=== PATIENT | male | born 1990 | race Caucasian/White ===

== ENCOUNTER 2020-02-07 00:21 | Emergency (ER) | payer OTHER ==
[~2020-02-07] VITALS: Ht 180.3 cm; Wt 88.6 kg
[2020-02-07] MEDS ORDERED: LORazepam 2 MG/ML VIAL IM ONE (01:45)
[2020-02-07] MEDS ORDERED: diphenhydrAMINE 50MG/ML VIAL (J1200) IM ONE (01:45)
[2020-02-07] MEDS ORDERED: HALOPERIDOL 5MG/ML VIAL (J1630 PER 1) IM ONE (01:45)
[2020-02-07 02:41] LABS: HEMATOCRIT 49.5 % (42.0-52.0); HEMOGLOBIN 16.2 g/dl (13.5-17.5); MEAN CORPUSCULAR HEMOGLOBIN 31.4 pg (27.0-33.0); MEAN CORPUSCULAR HGB CONC 32.7 g/dl (32.0-36.5); MEAN CORPUSCULAR VOLUME 95.9 fl (80.0-96.0); PLATELET COUNT, AUTOMATED 236 10^3/uL (150-450); RED BLOOD COUNT 5.16 10^6/uL (4.30-6.10); WHITE BLOOD COUNT 6.5 10^3/uL (4.0-10.0)
[2020-02-07 03:08] LABS: AMPHETAMINES LEVEL URINE NEGATIVE (NEGATIVE); BARBITURATES URINE NEGATIVE (NEGATIVE); BENZODIAZEPINES URINE NEGATIVE (NEGATIVE); CANNABINOIDS URINE NEGATIVE (NEGATIVE); COCAINE METABOLITE URINE NEGATIVE (NEGATIVE); METHADONE URINE NEGATIVE (NEGATIVE); OPIATES URINE NEGATIVE (NEGATIVE); PHENCYCLIDINE URINE NEGATIVE (NEGATIVE)
[2020-02-07 03:36] LABS: ACETAMINOPHEN LEVEL < 2.0 UG/ML (10.0-30.0); ALBUMIN 4.1 GM/DL (3.2-5.2); ALT/SGPT 72 U/L (12-78); BILIRUBIN,DIRECT 0.1 MG/DL (0.0-0.2); BILIRUBIN,TOTAL 0.3 MG/DL (0.2-1.0); BLOOD UREA NITROGEN 10 MG/DL (7-18); CALCIUM LEVEL 9.3 MG/DL (8.5-10.1); CARBON DIOXIDE LEVEL 28 MEQ/L (21-32); CHLORIDE LEVEL 113 MEQ/L (98-107); CREATININE FOR GFR 0.87 MG/DL (0.70-1.30); ETHYL ALCOHOL (ETHANOL) 0.342 % (0.000-0.010); GLOMERULAR FILTRATION RATE > 60.0 (>60); GLUCOSE, FASTING 104 MG/DL (70-100); POTASSIUM SERUM 3.8 MEQ/L (3.5-5.1); SALICYLATE LEVEL 2.5 MG/DL (5.0-30.0); SODIUM LEVEL 149 MEQ/L (136-145); TOTAL PROTEIN 8.2 GM/DL (6.4-8.2)
[2020-02-07] MEDS ORDERED: THIAMINE 100 MG TAB PO SCH (05:29)
[2020-02-07] MEDS ORDERED: LORazepam 2 MG TAB PO PRN (05:30)
[2020-02-07] MEDS ORDERED: MULTIVITAMINS/MINERALS THERAP 1 TAB PO SCH (09:00)
[2020-02-07] MEDS ORDERED: FOLIC ACID 1 MG TAB PO SCH (09:00)
[2020-02-07 15:22] VITALS: BP 121/78
== END 2020-02-07 15:45 | disposition home or self-care (01) ==
LOC: M ED 00:21
DX: F10.129 Alcohol abuse with intoxication, unspecified (principal)
CPT/HCPCS: 80048; 80076; 80307; 84443; 85027; 96372; 99284; G0480; J1200; J1630; J2060

== ENCOUNTER 2020-06-07 16:03 | Inpatient (IN) | payer OTHER ==
[~2020-06-07] VITALS: Ht 180.3 cm; Wt 85.8 kg
[2020-06-07] MEDS ORDERED: WELLTAB40 PO (16:14)
[2020-06-07] MEDS ORDERED: methylPREDNISolone 125MG 2ML VIAL IV ONE (18:00)
[2020-06-07] MEDS ORDERED: ISOVUE-370 76% 100ML VIAL As Ordered ONE (18:07)
[2020-06-07 18:11] LABS: HEMATOCRIT 43.5 % (42.0-52.0); HEMOGLOBIN 13.8 g/dl (13.5-17.5); MEAN CORPUSCULAR HGB CONC 31.7 g/dl (32.0-36.5); MEAN CORPUSCULAR VOLUME 94.6 fl (80.0-96.0); PLATELET COUNT, AUTOMATED 242 10^3/uL (150-450); WHITE BLOOD COUNT 9.8 10^3/uL (4.0-10.0)
--- NOTE | 2020-06-07 18:32 | REPVR ---
PROCEDURE INFORMATION: Exam: CT Neck With Contrast Exam date and time: 06/07/2020 5:51 PM Age: 29 years old Clinical indication: Mass, lump, or swelling in neck; Additional info: R sided tonsill swelling R/O abscess TECHNIQUE: Imaging protocol: Computed tomography images of the neck with intravenous contrast. Radiation optimization: All CT scans at this facility use at least one of these dose optimization techniques: automated exposure control; mA and/or kV adjustment per patient size (includes targeted exams where dose is matched to clinical indication); or iterative reconstruction. Contrast material: ISOVUE 370; Contrast volume: 75 ml; Contrast route: INTRAVENOUS (IV); COMPARISON: No relevant prior studies available. FINDINGS: Nasopharynx: Hypertrophy adenoids consistent with adenopathy. Oropharynx: Bilaterally enlarged tonsillar pillars consistent with adenopathy. Hypoattenuating low-density focus in the right tonsillar pillar measures 1.8 x 1.5 x 2.7 cm. Smaller fluid density locules demonstrated laterally. Findings consistent with tonsillar abscesses. Hypopharynx: Unremarkable. Larynx: Unremarkable. Normal epiglottis. Retropharyngeal space: Unremarkable. Submandibular/Parotid glands: Normal. Glands are normal in size. Thyroid: Normal. No enlarged or calcified nodules. Lymph nodes: Enlarged soft palate consistent with palatine adenopathy. Bilateral level I through level III adenopathy measuring up to 1.4 cm in the right jugulodigastric region. Smaller submental lymph nodes demonstrated as well. Trachea: Visualized trachea is unremarkable. Lungs: Unremarkable as visualized. Bones/joints: Unremarkable. No acute fracture. Soft tissues: Unremarkable. No significant soft tissue swelling. IMPRESSION: 1. Hypertrophy adenoids and soft palate consistent with adenopathy. 2. Bilaterally enlarged tonsillar pillars consistent with adenopathy. Hypoattenuating low-density focus in the right tonsillar pillar measures 1.8 x 1.5 x 2.7 cm. Smaller fluid density locules demonstrated laterally. Findings consistent with tonsillar abscesses. 3. Bilateral level I through level III adenopathy measuring up to 1.4 cm in the right jugulodigastric region. Smaller submental lymph nodes demonstrated as well. Electronically signed by: Ronny Grove On 06/07/2020 18:32:43 PM
[2020-06-07 18:44] LABS: ATYPICAL LYMPH 6 % (0-5); LYMPHOCYTES 32 % (16-44); METAMYELOCYTES 1 % (0-0); MONOCYTES 8 % (0-5); NEUTROPHILS 42 % (28-66)
[2020-06-07 18:45] LABS: ANISOCYTOSIS 1+; PLATELET ESTIMATE NORMAL (NORMAL)
[2020-06-07 18:46] LABS: HYPOCHROMASIA 1+
[2020-06-07 18:47] LABS: ERYTHROCYTE SEDIMENTATION RATE 8 mm/hr (0-15)
[2020-06-07] MEDS ORDERED: GLUCAGON INJ 1MG VIAL SC PRN (19:30)
[2020-06-07] MEDS ORDERED: DEXTROSE 50% 50 ML SYRINGE IV PRN (19:30)
[2020-06-07] MEDS ORDERED: GLUCOSE 4GM CHEW TABLET PO PRN (19:30)
[2020-06-07] MEDS ORDERED: D5W/0.45% SODIUM CHLORIDE 1,000 ML IV SCH (19:30)
[2020-06-07] MEDS ORDERED: CLINDAMYCIN 600 MG in IV 1 EA IV ONE (19:45)
--- NOTE | 2020-06-07 20:22 | HPEPDOC ---
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 He was seen at [place] [facility] initially and told that since he has had symptoms for 5 days, no need to treat and may resolve spontaneously. He continued to have odynophagia, and went to Urgent Care on Thursday where he was t ested for COVID-19NEGATIVE, and (+) for mononucleosis. Due to persistent sharp constant pain, increasing cervical LAD, difficulty eating solid food, and unable to sleep taking nyquil as needed and a 5lb weight loss in the past 2 wks, he decided to come to [facility] ER despite quarantine orders at [place]. He denied any change in his voice, respiratory distress, and is able to lay down flat on the bed without difficulty breathing. In the ER, he was afebrile 99.2, no stridor or tracheal deviation on examination, CRP 3.8, but normal white count and ESR, but CT Neck : tonsillar abscesses. ER gave iv solumedrol, and per ENT Dr. Sanchez, pt was kept NPO for surgery tonight. PAST MEDICAL HISTORY: mononucleosis, depression, ETOH intoxication, anxiety, suicidal ideation seen in ER January 2020 HOME MEDICATIONS: SEE BELOW ALLERGIES: NKDA PAST SURGICAL HISTORY: cholecystectomy SOCIAL HISTORY: Marital status: . lives with at [place] Employment: retired marine Tobacco use:quit January 2020 1ppd previously ETOH:alcohol intoxication january 2020 seen in ER. Illicit drug use: denies FAMILY HISTORY: Father: alive and well age 55, no medical problems Mother: alive and well age 55, no medical problems REVIEW OF SYSTEMS:10 POINT ROS NEGATIVE ASIDE FROM (+) FINDINGS ON HPI HOME MEDICATIONS: Please see below. PHYSICAL EXAMINATION: VITAL SIGNS: SEE BELOW GENERAL APPEARANCE: AAO x 3. no respiratory distress, no conversational dyspnea, no cyanosis, no pallor no drooling no use of accessory respiratory muscles HEENT: PERRL EOMI anicteric no jaundice trachea midline no stridor (+)b/l cervical LAD no thyromegal, + pharangeal erythema , enlarged tonsills without purulence CARDIOVASCULAR: RRR S1S2 no murmurs, rubs, gallops, nondisplaced PMI LUNGS: AEBE CTAB no adventitious breath sounds no w/r/r ABDOMEN: soft nt nd + bs x 4 quadrants no rebound, guarding, or HSM EXTREMITIES: (-)cyanosis, clubbing, or pitting edema LABORATORY DATA: See below. IMAGING: Exam: CT Neck With Contrast Exam date and time: 06/07/2020 5:51 PM Age: 29 years old Clinical indication: Mass, lump, or swelling in neck; Additional info: R sided tonsillar swelling R/O abscess TECHNIQUE: Imaging protocol: Computed tomography images of the neck with intravenous contrast. Radiation optimization: All CT scans at this facility use at least one of these dose optimization techniques: automated exposure control; mA and/or kV adjustment per patient size (includes targeted exams where dose is matched to clinical indication); or iterative reconstruction. Contrast material: ISOVUE 370; Contrast volume: 75 ml; Contrast route: INTRAVENOUS (IV); COMPARISON: No relevant prior studies available. FINDINGS: Nasopharynx: Hypertrophy adenoids consistent with adenopathy. Oropharynx: Bilaterally enlarged tonsillar pillars consistent with adenopathy. Hypoattenuating low-density focus in the right tonsillar pillar measures 1.8 x 1.5 x 2.7 cm. Smaller fluid density locules demonstrated laterally. Findings consistent with tonsillar abscesses. Hypopharynx: Unremarkable. Larynx: Unremarkable. Normal epiglottis. Retropharyngeal space: Unremarkable. Submandibular/Parotid glands: Normal. Glands are normal in size. Thyroid: Normal. No enlarged or calcified nodules. Lymph nodes: Enlarged soft palate consistent with palatine adenopathy. Bilateral level I through level III adenopathy measuring up to 1.4 cm in the right jugulodigastric region. Smaller submental lymph nodes demonstrated as well. Trachea: Visualized trachea is unremarkable. Lungs: Unremarkable as visualized. Bones/joints: Unremarkable. No acute fracture. Soft tissues: Unremarkable. No significant soft tissue swelling. IMPRESSION: 1. Hypertrophy adenoids and soft palate consistent with adenopathy. 2. Bilaterally enlarged tonsillar pillars consistent with adenopathy. Hypoattenuating low-density focus in the right tonsillar pillar measures 1.8 x 1.5 x 2.7 cm. Smaller fluid density locules demonstrated laterally. Findings consistent with tonsillar abscesses. 3. Bilateral level I through level III adenopathy measuring up to 1.4 cm in the right jugulodigastric region. Smaller submental lymph nodes demonstrated as well. Electronically signed by: Ronny Grove On 06/07/2020 18:32:43 PM MICROBIOLOGY: Please see below. ASSESSMENT/PLAN: Right Tonsillar Abscesses -npo. ENT Dr. Mynor Sanchez has been consulted. D51/2 NS at 100ml/hr while npo. Hypoglycemic protocol. Decadron 10 mg iv q6hrs, Clindamycin 600mg IV q6hrs. Anxiety/Depression/History of Suicidal Ideation -last evaluation was at [facility] ER 01/2020. -denies active suicidal or homicidal ideation History of ETOH intoxication -denies ETOH abuse. Diet: NPO DVT Prophylaxis: no anticoagulant preoperatively. compression stockings. code Status: Full code. Vital Signs Vital Signs Date Time Temp Pulse Resp B/P (MAP) Pulse Ox O2 Delivery O2 Flow Rate FiO2 06/07/20 17:47 06/07/20 16:04 99.2 82 20 98 Room Air Laboratory Data Labs 24H Laboratory Tests 2 06/07/20 18:00: Neutrophils (%) (Auto) , Nucleated Red Blood Cells % (auto) 0.0, Neutrophils 42, Band Neutrophils 11, Lymphocytes (Manual) 32, Monocytes (Manual) 8H, M etamyelocytes 1H, Atypical Lymphocytes 6H, Hypochromasia 1+, Anisocytosis 1+, Platelet Estimate NORMAL, Erythrocyte Sedimentation Rate 8, C-Reactive Protein, Quantitative 3.80H 06/07/20 18:04: POC Glucose (Misc Panel) 89, POC Sodium (Misc Panel) 139, POC Potassium (Misc Panel) 4.0, POC Chloride (Misc Panel) 100, POC Total CO2 (Misc Panel) 29.0H, POC Blood Urea Nitrogen (Misc Panel 6L, POC Ionized Calcium (Misc Panel) 4.7, POC Creatinine (Misc Panel) 1.0, POC Hematocrit (Misc Panel) 43.0 CBC/BMP Laboratory Tests 06/07/20 18:00 Home Medications Scheduled Bupropion HCl (Wellbutrin Xl) 300 Mg Tab.er.24h, 300 MG PO DAILY Allergies Coded Allergies: No Known Allergies (Unverified , 02/07/20) A-FIB/CHADSVASC A-FIB History Current/History of A-Fib/PAF?: No Current PO Anticoag Therapy: No Age/Risk Factor Scoring CHADSVASC: CHADSVASC Response (Comments) Value Age Risk Factor Age < 65 years old 0 Gender Risk Factor Male 0 Hx of CHF No 0 Hx of HTN No 0 Hx of Stroke/TIA/or VTE No 0 Hx of Diabetes No 0 Hx of Vascular Disease No 0 Total 0 Treatment Treatment ordered: NONE KAYE ALVAREZ MD Jun 07, 2020 19:30
[2020-06-07] MEDS ORDERED: ACETAMINOPHEN *IV* 1,000 MG in IV 1 EA IV ONE (20:30)
[2020-06-07] MEDS ORDERED: MORPHINE 10 MG/ML 1ML VIAL (J2270) IV ONE (20:30)
[2020-06-07] MEDS: MORPHINE 4 MG/ML 1ML VIAL/SYRINGE (J2270) IV PRN ×2 (20:34→23:37)
[2020-06-07] MEDS ORDERED: LIDOCAINE W/EPINEPHRINE 1% 20ML VIAL As Ordered ONE (21:33)
[2020-06-07] MEDS ORDERED: CLINDAMYCIN INJ 900MG/6ML VIAL As Ordered ONE (21:33)
[2020-06-07] MEDS: dexameTHASONE 20MG/5ML VIAL (J1100 PER 1MG) IV SCH (21:50)
[2020-06-07] MEDS ORDERED: ROCURONIUM BROMIDE 50 MG/5 ML VIAL As Ordered ONE (21:54)
[2020-06-07] MEDS ORDERED: MIDAZOLAM INJ 2MG/2ML VIAL (J2250 PER 1MG) As Ordered ONE (21:54)
[2020-06-07] MEDS ORDERED: dexameTHASONE 4 MG/ML 1ML VIAL (J1100 PER 1MG) As Ordered ONE (21:54)
[2020-06-07] MEDS ORDERED: KETOROLAC 60MG 2ML VIAL As Ordered ONE (21:54)
[2020-06-07] MEDS ORDERED: propofoL 200 MG/20 ML VIAL As Ordered ONE (21:54)
[2020-06-07] MEDS ORDERED: fentaNYL 250 MCG/5 ML INJECTION (J3010) As Ordered ONE (21:54)
[2020-06-07] MEDS ORDERED: ONDANSETRON 4MG/2ML VIAL As Ordered ONE (21:54)
[2020-06-07] MEDS ORDERED: LIDOCAINE 2% 100MG/5ML SDV (FOR ANES.) As Ordered ONE (21:54)
[2020-06-07] MEDS ORDERED: SUGAMMADEX SODIUM 500 MG/5 ML VIAL (BRIDION) As Ordered ONE (21:54)
[2020-06-07] MEDS ORDERED: METOCLOPRAMIDE INJ 10MG/2ML VIAL (J2765 PER 1) IV PRN (22:15)
[2020-06-07] MEDS ORDERED: LR 1,000 ML IV SCH (22:15)
[2020-06-07] MEDS ORDERED: MEPERIDINE INJ 25 MG/ML VIAL (J2175) IV PRN (22:15)
[2020-06-07] MEDS ORDERED: ONDANSETRON 4MG/2ML VIAL IV PRN (22:15)
[2020-06-07] MEDS ORDERED: fentaNYL 100 MCG/2 ML INJECTION (J3010) As Ordered ONE (22:20)
[2020-06-07] MEDS: fentaNYL 100 MCG/2 ML INJECTION (J3010) IV PRN ×4 (22:25→22:47)
[2020-06-07 23:00] VITALS: BP 135/75
[2020-06-07 23:30] VITALS: BP 139/71
[2020-06-07] MEDS: LR 1,000 ML IV SCH (23:38)
[2020-06-08] VITALS (9 sets, daily range): BP systolic 108–144; BP diastolic 54–84
[2020-06-08] MEDS: MORPHINE 4 MG/ML 1ML VIAL/SYRINGE (J2270) IV PRN ×3 (02:33→08:03)
[2020-06-08] MEDS: CLINDAMYCIN 600 MG in IV 1 EA IV SCH ×2 (02:34→07:55)
[2020-06-08] MEDS: dexameTHASONE 20MG/5ML VIAL (J1100 PER 1MG) IV SCH ×2 (05:15→11:46)
[2020-06-08 06:01] LABS: HEMATOCRIT 40.6 % (42.0-52.0); HEMOGLOBIN 12.6 g/dl (13.5-17.5); MEAN CORPUSCULAR HEMOGLOBIN 29.1 pg (27.0-33.0); MEAN CORPUSCULAR VOLUME 93.8 fl (80.0-96.0); PLATELET COUNT, AUTOMATED 265 10^3/uL (150-450); RED BLOOD COUNT 4.33 10^6/uL (4.30-6.10); WHITE BLOOD COUNT 9.6 10^3/uL (4.0-10.0)
[2020-06-08 06:05] LABS: BLOOD UREA NITROGEN 9 MG/DL (7-18); C REACTIVE PROTEIN QUANTITATIV 4.77 MG/DL (0.00-0.30); CALCIUM LEVEL 8.8 MG/DL (8.5-10.1); CARBON DIOXIDE LEVEL 28 MEQ/L (21-32); CHLORIDE LEVEL 104 MEQ/L (98-107); CREATININE FOR GFR 0.86 MG/DL (0.70-1.30); GLOMERULAR FILTRATION RATE > 60.0 (>60); GLUCOSE, FASTING 160 MG/DL (70-100); POTASSIUM SERUM 4.1 MEQ/L (3.5-5.1); SODIUM LEVEL 139 MEQ/L (136-145)
[2020-06-08 06:25] LABS: ERYTHROCYTE SEDIMENTATION RATE 11 mm/hr (0-15)
[2020-06-08 06:45] LABS: ATYPICAL LYMPH 14 % (0-5); LYMPHOCYTES 15 % (16-44); MONOCYTES 9 % (0-5); NEUTROPHILS 62 % (28-66); PLATELET ESTIMATE NORMAL (NORMAL)
[2020-06-08] MEDS: LR 1,000 ML IV SCH (07:55)
[2020-06-08] MEDS ORDERED: CLIN150C14 PO (10:27)
[2020-06-08] MEDS ORDERED: CLEO300C2 PO (10:31)
--- NOTE | 2020-06-08 10:34 | DS.PDOC ---
Discharge Summary General Date of Admission Jun 07, 2020 at 19:30 Date of Discharge 06/08/20 Discharge Summary PROCEDURES PERFORMED DURING STAY: [None]. ADMITTING DIAGNOSES: R Tonsillar Abscess Anxiety/Depression/Hx of SI Hx of etoh use disorder, sober 5 months, in treatment program DISCHARGE DIAGNOSES: R Tonsillar Abscess Anxiety/Depression/Hx of SI Hx of etoh use disorder, sober 5 months, in treatment program COMPLICATIONS/CHIEF COMPLAINT: Tonsillar Abscess. 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 He was seen at [place] [facility] initially and told that since he has had symptoms for 5 days, no need to treat and may resolve spontaneously. He continued to have odynophagia, and went to Urgent Care on Thursday where he was tested for COVID-19NEGATIVE, and (+) for mononucleosis. Due to persistent sharp constant pain, increasing cervical LAD, difficulty eating solid food, and unable to sleep taking nyquil as needed and a 5lb weight loss in the past 2 wks, he decided to come to [facility] ER despite quarantine orders at [place]. He denied any change in his voice, respiratory distress, and is able to lay down flat on the bed without difficulty breathing. In the ER, he was afebrile 99.2, no stridor or tracheal deviation on examination, CRP 3.8, but normal white count and ESR, but CT Neck : tonsillar abscesses. ER gave iv solumedrol, and per ENT Dr. Sanchez, pt was kept NPO for surgery tonight. HOSPITAL COURSE: Mr. Herrera is a pleasant 29-year-old male was admitted for surgical management of right tonsillar abscess. He was given Decadron 10 mg IV every 6 hours as well as clindamycin 600 mg IV every 6 hours. He was taken to the OR by ENT surgeon Dr. Mynor Sanchez. He was evaluated in the morning following surgery. He was able to tolerate a soft diet, had complained of mild to moderat e pain, and had noted breathing difficulties. Discussed the case with Dr. Sanchez, recommended patient be discharged with clindamycin orally for 10 days, without need for additional steroids. Patient to follow up with him in one week in the ENT clinic. Patient did not have a white count, fever, or respiratory difficulties in the morning of discharge, O2 saturation 96% room air. He was advised to return to the ER if you developed difficulties breathing, fevers, chills, significant pharyngeal pain. Further, patient was advised to avoid contact sports for at least 2 weeks or until seeing his primary care provider, given history of recent mononucleosis DISCHARGE MEDICATIONS: Please see below. ALLERGIES: Please see below. PHYSICAL EXAMINATION ON DISCHARGE: VITAL SIGNS: please see below General: NAD, comfortable HEENT: PERRLA, EOMI, sclerae clear Neck: supple, no JVD Respiratory: lungs CTAB, no wheeze, no rales, no crackles CVS: RRR, normal S1, S2, no murmurs Abdo: soft, no masses, questionable mild hepatomegaly, BS+, no rebound tenderness Extremities: no edema, pulses 2+ MSK: no joint deformities, normal ROM Neuro: no focal neuro deficits, moving all 4 extremities, CN2-[address] ength 5/5 in all 4 extremities. No nystagmus. Psych: calm, cooperative, AAO x 3 LABORATORY DATA: Please see below. IMAGING: CT neck w contrast (06/08/20) 1. Hypertrophy adenoids and soft palate consistent with adenopathy. 2. Bilaterally enlarged tonsillar pillars consistent with adenopathy. Hypoattenuating low-density focus in the right tonsillar pillar measures 1.8 x 1.5 x 2.7 cm. Smaller fluid density locules demonstrated laterally. Findings consistent with tonsillar abscesses. 3. Bilateral level I through level III adenopathy measuring up to 1.4 cm in the right jugulodigastric region. Smaller submental lymph nodes demonstrated as well. PROGNOSIS: Good ACTIVITY: [As tolerated]. DIET: Soft diet DISCHARGE PLAN: Discharge home ENT follow-up in 1 week. PCP in 3-[address] Kenn nue clindamycin 600 mg by mouth twice a day for 10 days. Trial with by mouth Canjilon and Advil. DISPOSITION: Home DISCHARGE INSTRUCTIONS: 1. Please follow-up with your primary care doctor within 3-5 days 2. Please follow-up with ENT within 1 week 3. Please taking medications as prescribed. 4. If he developed bleeding, chest pain, shortness of breath, seizures, nausea, fevers, or otherwise worsening of your symptoms, please call 911 or return to the nearest emergency room ITEMS TO FOLLOWUP ON ON OUTPATIENT: Completion of clindamycin course for 10 days. DISCHARGE CONDITION: [Stable]. TIME SPENT ON DISCHARGE: 35 minutes Vital Signs/I&Os Vital Signs Date Time Temp Pulse Resp B/P (MAP) Pulse Ox O2 Delivery O2 Flow Rate FiO2 06/08/20 08:13 16 Room Air 06/08/20 08:00 98.8 70 144/84 (104) 96 I&O- Last 24 Hours up to 6 AM 06/08/20 06:00 Intake Total 515 ml Output Total 525 ml Balance -10 ml Laboratory Data Labs 24H Laboratory Tests 2 06/07/20 18:00: Neutrophils (%) (Auto) , Nucleated Red Blood Cells % (auto) 0.0, Neutrophils 42, Band Neutrophils 11, Lymphocytes (Manual) 32, Monocytes (Manual) 8H, Metamyelocytes 1H, Atypical Lymphocytes 6H, Hypochromasia 1+, Anisocytosis 1+, Platelet Estimate NORMAL, Erythrocyte Sedimentation Rate 8, C-Reactive Protein, Quantitative 3.80H 06/07/20 18:04: POC Glucose (Misc Panel) 89, POC Sodium (Misc Panel) 139, POC Potassium (Misc Panel) 4.0, POC Chloride (Misc Panel) 100, POC Total CO2 (Misc Panel) 29.0H, POC Blood Urea Nitrogen (Misc Panel 6L, POC Ionized Calcium (Misc Panel) 4.7, POC Creatinine (Misc Panel) 1.0, POC Hematocrit (Misc Panel) 43.0 06/07/20 19:38: Coronavirus (COVID-19)(PCR) NEGATIVE 06/08/20 05:10: Neutrophils (%) (Auto) , Nucleated Red Blood Cells % (auto) 0.0, Neutrophils 62, Lymphocytes (Manual) 15L, Monocytes (Manual) 9H, Atypical Lymphocytes 14H, Platelet Estimate NORMAL, Erythrocyte Sedimentation Rate 11, C-Reactive Protein, Quantitative 4.77H, Red Blood Cell Morphology NORMAL, Anion Gap 7L, Glomerular Filtration Rate > 60.0, Calcium Level 8.8 CBC/BMP Laboratory Tests 06/07/20 18:00 06/08/20 05:10 Microbiology Microbiology 06/07/20 Gram Stain, Received Pending 06/07/20 Abscess Culture, Received Pending 06/07/20 Anaerobic Culture, Received Pending Discharge Medications Scheduled Bupropion HCl (Wellbutrin Xl) 300 Mg Tab.er.24h, 300 MG PO DAILY, (Reported) Clindamycin Hcl (Cleocin HCl) 300 Mg Capsule, 600 MG PO BID Scheduled PRN Hydrocodone/Acetaminophen (Canjilon 5-325 Tablet) 1 Each Tablet, 1 TAB PO TIDP PRN for SEVERE PAIN (PS 8-10) Ibuprofen (Advil) 200 Mg Tablet, 400 MG PO Q6H PRN for MODERATE PAIN (PS 5-7) Allergies Coded Allergies: No Known Allergies (Unverified , 02/07/20) ELENITA REAVES MD Jun 08, 2020 10:34
[2020-06-08] MEDS ORDERED: NORC1TAB7 PO (10:38)
[2020-06-08] MEDS ORDERED: ADVI200T PO (10:38)
[2020-06-09] MEDS ORDERED: MEDR4PAK PO (22:59)
--- NOTE | 2020-06-11 14:12 | RO ---
DATE OF OPERATION: 06/07/2020 PREOPERATIVE DIAGNOSIS: Right peritonsillar abscess. POSTOPERATIVE DIAGNOSIS: Right peritonsillar abscess. PROCEDURE PERFORMED: Incision and drainage of right peritonsillar abscess. SURGEON: Mynor Sanchez MD ANESTHESIA: General. CLINICAL PREAMBLE: This 29-year-old man presented to the local urgent care with sore throat approximately two weeks ago. He was eventually diagnosed to have mononucleosis. However, he continues to have persistent and worsening sore throat. He presented to the emergency department at [facility] for further evaluation. Physical examination revealed edematous right tonsil. CT scan of neck showed evidence of right peritonsillar abscess. Management options including surgery listed above have been discussed with the patient. He understood and consented to the procedure. PROCEDURE: The patient was identified in pre-holding area and brought to the operating room in satisfactory condition. He was placed in supine position on the operating table, the patient received general anesthesia followed by orotracheal intubation. The patient was prepped and draped in usual fashion for the procedure. The Otoniel-Santhosh mouth gag was inserted and suspended. The right tonsil was found to be edematous and erythematous right soft palate. The mucosa overlying the superior pole of the right tonsil was infiltrated with 1% Lidocaine with 1:100,000 Epinephrine. Mucosal incision was made using sickle knife. The right peritonsillar space was entered using the Schnitz dissector. Approximately 5 mL of purulent discharge was expressed. Cultures for C&S, gram stain and anaerobes were obtained. The right peritonsillar space was then irrigated using warm saline solution mixed with 900 mg of Clindamycin in 1 liter of normal saline solution. At the end of the procedure sponge and instrument counts were correct. No complications were encountered. Estimated blood loss less than 5 mL. Anesthesia was reversed and patient was extubated and brought to the recovery room in stable condition. KWESI
== END 2020-06-08 13:12 | disposition home or self-care (01) | DRG 134 ==
LOC: M ED 16:03 → M ED INP 19:30 → M PCU 23:06
PROVIDERS: ADMIT General Practice; ATTEND Family Medicine
PROC: 0C9PXZZ Drainage of Tonsils, External Approach (ICD-10-PCS; principal; 2020-06-07 20:12)
DX: J36 Peritonsillar abscess (principal); F41.9 Anxiety disorder, unspecified; F32.9 Major depressive disorder, single episode, unspecified; Z79.899 Other long term (current) drug therapy

== ENCOUNTER 2020-06-09 19:27 | Emergency (ER) | payer OTHER ==
[~2020-06-09] VITALS: Ht 180.3 cm; Wt 86.6 kg
[~2020-06-09 19:27] MED LIST: ADVI200T PO; CLEO300C2 PO; CLIN150C14 PO; NORC1TAB7 PO; WELLTAB40 PO
[2020-06-09] MEDS ORDERED: dexameTHASONE 20MG/5ML VIAL (J1100 PER 1MG) IV ONE (20:15)
[2020-06-09] MEDS ORDERED: KETOROLAC 30 MG/ML 1ML VIAL IV ONE (20:15)
[2020-06-09] MEDS ORDERED: NS 1,000 ML IV ONE (20:15)
[2020-06-09] MEDS ORDERED: PIPERACILLIN/TAZOBACTAM SOD 3.375 GM in D5W MINI-BAG PLUS 50 ML IV ONE (20:45)
[2020-06-09 20:56] LABS: HEMOGLOBIN 12.4 g/dl (13.5-17.5); MEAN CORPUSCULAR HEMOGLOBIN 29.5 pg (27.0-33.0); MEAN CORPUSCULAR VOLUME 95.2 fl (80.0-96.0); PLATELET COUNT, AUTOMATED 258 10^3/uL (150-450); WHITE BLOOD COUNT 7.7 10^3/uL (4.0-10.0)
[2020-06-09 21:12] LABS: BLOOD UREA NITROGEN 12 MG/DL (7-18); CALCIUM LEVEL 8.8 MG/DL (8.5-10.1); CARBON DIOXIDE LEVEL 32 MEQ/L (21-32); CHLORIDE LEVEL 104 MEQ/L (98-107); CREATININE FOR GFR 0.74 MG/DL (0.70-1.30); GLOMERULAR FILTRATION RATE > 60.0 (>60); GLUCOSE, FASTING 87 MG/DL (70-100); POTASSIUM SERUM 3.9 MEQ/L (3.5-5.1); SODIUM LEVEL 141 MEQ/L (136-145)
[2020-06-09 21:14] LABS: ATYPICAL LYMPH 21 % (0-5); EOSINOPHILS 1 % (0-3); LYMPHOCYTES 13 % (16-44); MONOCYTES 5 % (0-5); NEUTROPHILS 60 % (28-66)
[2020-06-09 21:15] LABS: PLATELET ESTIMATE NORMAL (NORMAL)
[2020-06-09 21:31] LABS: ERYTHROCYTE SEDIMENTATION RATE 11 mm/hr (0-15)
[2020-06-09] MEDS ORDERED: MEDR4PAK PO (22:59)
[2020-06-09 23:16] VITALS: BP 128/62
== END 2020-06-09 23:15 | disposition home or self-care (01) ==
LOC: M ED 19:27
DX: T88.9XXA Complication of surgical and medical care, unspecified, initial encounter (principal); B27.90 Infectious mononucleosis, unspecified without complication; J36 Peritonsillar abscess; Z79.899 Other long term (current) drug therapy
CPT/HCPCS: 80048; 83605; 85025; 85652; 86140; 96365; 96366; 96375; 99283; J1100; J1885; J2543

== ENCOUNTER 2020-07-21 01:03 | Emergency (ER) | payer OTHER ==
[~2020-07-21] VITALS: Ht 182.9 cm; Wt 79.7 kg
[~2020-07-21 01:03] MED LIST changes: +MEDR4PAK PO
[2020-07-21 01:54] LABS: HEMATOCRIT 40.8 % (42.0-52.0); HEMOGLOBIN 13.2 g/dl (13.5-17.5); MEAN CORPUSCULAR HEMOGLOBIN 28.9 pg (27.0-33.0); MEAN CORPUSCULAR HGB CONC 32.4 g/dl (32.0-36.5); MEAN CORPUSCULAR VOLUME 89.5 fl (80.0-96.0); PLATELET COUNT, AUTOMATED 246 10^3/uL (150-450); RED BLOOD COUNT 4.56 10^6/uL (4.30-6.10); WHITE BLOOD COUNT 5.7 10^3/uL (4.0-10.0)
[2020-07-21 02:23] LABS: BLOOD UREA NITROGEN 8 MG/DL (7-18); CALCIUM LEVEL 8.8 MG/DL (8.5-10.1); CARBON DIOXIDE LEVEL 27 MEQ/L (21-32); CHLORIDE LEVEL 107 MEQ/L (98-107); CREATININE FOR GFR 1.06 MG/DL (0.70-1.30); ETHYL ALCOHOL (ETHANOL) < 0.003 % (0.000-0.010); GLOMERULAR FILTRATION RATE > 60.0 (>60); GLUCOSE, FASTING 92 MG/DL (70-100); MAGNESIUM LEVEL 2.1 MG/DL (1.8-2.4); POTASSIUM SERUM 3.4 MEQ/L (3.5-5.1); SODIUM LEVEL 144 MEQ/L (136-145)
[2020-07-21 03:08] LABS: APPEARANCE, URINE CLEAR (CLEAR); BACTERIA, URINE AUTO NEGATIVE (NEGATIVE); BILIRUBIN, URINE AUTO NEGATIVE (NEGATIVE); BLOOD, URINE BLOOD NEGATIVE (NEGATIVE); COLOR, URINE YELLOW (YELLOW); GLUCOSE, URINE (UA) AUTO NEGATIVE (NEGATIVE); KETONE, URINE AUTO NEGATIVE (NEGATIVE); LEUKOCYTE ESTERASE, URINE AUTO NEGATIVE (NEGATIVE); NITRITE, URINE AUTO NEGATIVE (NEGATIVE); PROTEIN, URINE AUTO NEGATIVE (NEGATIVE); RBC, URINE AUTO 0 /HPF (0-3); SPECIFIC GRAVITY URINE AUTO 1.021 (1.002-1.035); SQUAMOUS EPITHELIAL CELL UR AU 0 /HPF (0-6); UROBILINOGEN, URINE AUTO 0.2 mg/dL (0.0-2.0); WBC, URINE AUTO 0 /HPF (0-3)
[2020-07-21 03:22] LABS: AMPHETAMINES LEVEL URINE NEGATIVE (NEGATIVE); BARBITURATES URINE NEGATIVE (NEGATIVE); BENZODIAZEPINES URINE NEGATIVE (NEGATIVE); CANNABINOIDS URINE NEGATIVE (NEGATIVE); COCAINE METABOLITE URINE NEGATIVE (NEGATIVE); METHADONE URINE NEGATIVE (NEGATIVE); OPIATES URINE NEGATIVE (NEGATIVE); PHENCYCLIDINE URINE NEGATIVE (NEGATIVE)
[2020-07-21] MEDS ORDERED: AMBI5TAB PO (03:39)
[2020-07-21] MEDS ORDERED: zolPIDEM TARTRATE 5 MG TAB PO ONE (03:45)
[2020-07-21 04:34] VITALS: BP 132/52
== END 2020-07-21 04:36 | disposition home or self-care (01) ==
LOC: M ED 01:03
DX: G47.00 Insomnia, unspecified (principal); F41.9 Anxiety disorder, unspecified; Z79.899 Other long term (current) drug therapy
CPT/HCPCS: 80048; 80307; 81001; 83735; 85027; 99284; G0480

== ENCOUNTER 2021-02-18 00:43 | Emergency (ER) | payer OTHER ==
[~2021-02-18] VITALS: Ht 180.3 cm; Wt 75.0 kg
[~2021-02-18 00:43] MED LIST changes: +AMBI5TAB PO; -CLIN150C14 PO; +CLIN150C15 PO
[2021-02-18] MEDS ORDERED: zolPIDEM TARTRATE 5 MG TAB PO ONE (03:45)
[2021-02-18 03:50] VITALS: BP 130/70
== END 2021-02-18 03:54 | disposition home or self-care (01) ==
LOC: M ED 00:43
DX: G47.00 Insomnia, unspecified (principal); F32.9 Major depressive disorder, single episode, unspecified

== ENCOUNTER 2022-12-11 16:14 | Emergency (ER) | payer OTHER ==
[~2022-12-11] VITALS: Ht 182.9 cm; Wt 80.3 kg
[~2022-12-11 16:14] MED LIST changes: -CLIN150C15 PO; +CLIN150C17 PO
[2022-12-11] MEDS ORDERED: ALBUTEROL SULFATE 2.5MG/0.5ML INH NEB SOLN NEB ONE (19:10)
[2022-12-11 19:25] LABS: BASO % 0.3 % (0.0-1.0); EOS # 0.3 10^3/uL (0.0-0.5); EOS % 4.1 % (0.0-3.0); HEMATOCRIT 42.2 % (42.0-52.0); HEMOGLOBIN 14.1 g/dl (13.5-17.5); LYMPH # 2.2 10^3/uL (1.5-5.0); LYMPH % 30.5 % (24.0-44.0); MEAN CORPUSCULAR HEMOGLOBIN 30.7 pg (27.0-33.0); MEAN CORPUSCULAR HGB CONC 33.4 g/dl (32.0-36.5); MEAN CORPUSCULAR VOLUME 91.7 fl (80.0-96.0); MONO # 0.5 10^3/uL (0.0-0.8); MONO % 7.4 % (2.0-8.0); NEUTROPHILS # 4.2 10^3/uL (1.5-8.5); NEUTROPHILS % 57.3 % (36.0-66.0); PLATELET COUNT, AUTOMATED 250 10^3/uL (150-450); WHITE BLOOD COUNT 7.3 10^3/uL (4.0-10.0)
[2022-12-11] MEDS ORDERED: ALBU6.7H6 INH (21:17)
[2022-12-11 21:21] VITALS: BP 130/79
== END 2022-12-11 21:24 | disposition home or self-care (01) ==
LOC: M ED 16:14
DX: J06.9 Acute upper respiratory infection, unspecified (principal)